=== PATIENT | male | born 1980 | race Caucasian/White ===

== ENCOUNTER → 2016-12-05 | Outpatient (CLI) | payer OTHER ==
[~2016-12-05] MED LIST: AMOXICILLIN500 MG PO; ANTIVERT/2525 MG PO; ATARAX,VISTARIL50 MG PO; ATARAX25 MG PO; ATIVAN1 MG PO; B-1100 MG PO; B121000 MCG/1 IM; BACTRIM DS 8001 TA1 PO; BENADRYL25 MG PO; BENTYL20 MG PO; CARBIDOPA PO; CARBIDOPA/LEVOD1 TA1 PO; CELEXA20 MG PO; CORDROL20 MG PO; CYMBALTA60 MG PO; DAYPRO600 M1 PO; DICYCLOMINE HCL20 MG PO; FLAGYL500 MG PO; HYDROXYZINE PAM50 MG PO; KEFLEX500 MG PO; KENALOG0.1% TP; LEXAPRO20 MG PO; LIDODERM 5% PATC1 EA T; LOMOTIL 0.025 M1 TA1 PO; LOPRESSOR25 MG PO; MEDROL DOSEPAK4 MG PO; MOTRIN800 MG PO; MULTIPLE VITAMI1 CAP PO; NICOTINE T21 MG/24 H T; NKHM; ONDANSETRON2 MG/ML IV; ONDANSETRON4 MG PO; PEN-VEE K500 MG PO; PEPTO BISMOL262 MG PO; PERCOCET 325 MG1 TA2 PO; PERCOCET 325 MG1 TA7 PO; PERCOCET 325 MG1 TAB PO; PHENERGAN25 M1 PO; PREDNICOT20 MG PO; PREDNISONE10 MG PO; PREDNISONE5 MG PO; PROTONIX40 MG PO; PROZAC40 M1 PO; REMERON30 MG PO; ROBAXIN750 MG PO; SEROQUEL100 MG PO; SEROQUEL200 MG PO; SEROQUEL300 MG PO; SEROQUEL50 MG PO; SINEMET 25-100M1 TAB PO; SOMA PO; SOMA350 MG PO; SUBOXONE 8 MG-21 TA2 SL; Septra Ds 800 M1 TAB PO; THERA1 TAB PO; TIZANIDINE HCL4 MG PO; TRAMADOL HCL50 MG PO; TRIMOX500 MG PO; TUMS 500500 MG PO; ULTRAM50 MG PO; VICODIN 5/500 505 MG PO; VICODIN 500 MG-1 TAB PO; VICODIN ES 7501 TAB PO; ZITHROMAX Z PA250 MG PO; ZOFRAN 4 MG ED2 TAB PO; ZOFRAN ODT4 MG PO; Zofran4 MG PO; [UNRECOGNIZED DRUG - OTHER] PO
--- NOTE | ~2016-12-05 | PR ---
[place], [place] PROGRESS NOTE NAME: MARIOLA DOTSON UNIT #: [id number] ROOM: DOCTOR: ESTHELA HERNANDEZ M.D. BIRTHDATE: [birth year] DOS: 12/05/2016 ADDENDUM PHYSICAL EXAMINATION: GENERAL: The patient is alert, oriented, and nonfocal, in no acute distress, nontoxic appearing. NECK: There is no JVD. LUNGS: Clear to auscultation. CARDIOVASCULAR: S1, S2, regular rate and rhythm. ABDOMEN: Soft and nontender. EXTREMITIES: There is no edema or calf tenderness. ESTHELA HERNANDEZ MD CM:PNTRANS [id number] ESTHELA HERNANDEZ M.D. 12/07/16 0659 interface
--- NOTE | ~2016-12-05 | WRIGHTHP ---
[place], [place] PATIENT HISTORY AND PHYSICAL EXAM [facility] DOTSON [id number] UNIT #: [id number] ROOM: DOCTOR: ESTHELA HERNANDEZ M.D. BIRTHDATE: [birth year] DOS: 12/05/2016 This is a new wound care evaluation. CHIEF COMPLAINT: Surgical wound of the right hand. HISTORY OF PRESENT ILLNESS: The patient is a 36-year-old male who had recent hand surgery. This was approximately 7 days ago. 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 The wound thus became infected, and he was seen at [place] for surgical removal of the foreign object. He still has sutures in place. Apparently while he was in there for several days, IV antibiotics and was told that he would need 6 weeks of IV antibiotics; however, the plan changed upon discharge, PICC line was removed, and he was discharged with oral amoxicillin and probenecid. The patient is concerned that there may be some ongoing problem with the wound. He still has pain off and on and also says that he is starting to feel like he is getting sick again, feels like he is getting fever. He has not had a documented fever at home that he is aware of, however. He does say that there is some drainage coming from one of the wounds. He had a fairly extensive surgery on the right hand and was told to just to keep the wound dry. In any case, the sutures are still in, and he apparently had an appointment with a surgeon next week. PAST MEDICAL HISTORY: Significant for history of neck injury and a shoulder injury, insomnia, depression. No diabetes that he is aware of. No history of MRSA or abscesses that he is aware of. History of hiatal hernia, history of difficulty clearing his ears, hypertension, insomnia as well. He denies any chest pain, shortness of breath, nausea, vomiting, abdominal pains, diarrhea or problems with the antibiotics at this time. He is quite anxious about his hand. He has numbness on the first digit pointer finger and once again feels like he is coming down with something. He says he feels the same way that he did when he first went to the hospital prior to the surgery. PAST SURGICAL HISTORY: He has had a hernia repair, tubes in his ears, back surgery, shoulder surgery and recent hand surgery. FAMILY HISTORY: His mother has a history of diabetes and hypertension. He has a son with diabetes. Grandpa had a history of skin cancer, grandmother with a history of breast cancer. He has a brother who had a history of bleeding on the brain. SOCIAL HISTORY: He smokes about a half pack a day. He currently is living at home with his girlfriend. He is not working. He has workmen's compensation. He denies drinking or drug abuse. ALLERGIES: NSAIDs, which cause vomiting. MEDICATIONS: He is on amoxicillin. I called [facility] to get the exact dose. He is on 500 mg tablets 2 tablets every 6 hours. A script was written for 14 days and then he has a script for probenecid 500 mg p.o. b.i.d., which he [place], [place] PATIENT HISTORY AND PHYSICAL EXAM NAME: MARIOLA DOTSON UNIT #: [id number] ROOM: DOCTOR: ESTHELA HERNANDEZ M.D. BIRTHDATE: [birth year] has not picked up yet, but that is going to be ready this afternoon. PHYSICAL EXAMINATION: VITAL SIGNS: His temperature is 99.4, his pulse is 102, respirations 18, blood pressure is 138/68. WOUND EXAM: The wound itself has several sutures present. There is one that is V-shaped on the palm that has some scabbing areas. There is no surrounding cellulitis. I do not appreciate any purulence at this time. It is not acutely red, and he has a well-healed and approximated what appears to be well-approximated sutures on the dorsal aspect of the pointer finger and several of the other sutures appear to be intact. There is some crusting noted where the V-shaped incision was made, but I did not appreciate any purulence or cellulitis on this area at this time. No debridement was done. ASSESSMENT AND PLAN: Recent hand trauma with subsequent infection and surgery. He still has sutures in. He is supposed to follow up with the surgeon next week. The wound appears stable just by looking at it; however, I am concerned about the temperature of 99.4. According to the patient and his mother, he was seen by Infectious Disease. His PICC line was discontinued, and he was put on oral antibiotics. I would like to get the records from [facility] to see exactly what the plan was. We will go ahead and get baseline blood work, a complete metabolic panel and ESR, CRP. Blood cultures have been ordered. Today, I will order them and also I will get an x-ray of the hand. I did explain that if he has any further changes in the wound or any increase in his temperature, he should go back to the Emergency Room. I would recommend going back to [facility], where the original surgery was. In the meantime, the wound appears clinically stable. We will go ahead and put Aquacel silver rope to any of the areas that may be draining, although at this time I do not appreciate any drainage, but the patient does report some drainage from one of the areas in the palmar aspect. I did explain to him to as far as the wound healing goes, we will know more about how the wound is healed once the sutures are removed. The patient is to follow up in one week. [place], [place] PATIENT HISTORY AND PHYSICAL EXAM NAME: [facility]OLA S [id number] UNIT #: [id number] ROOM: DOCTOR: ESTHELA HERNANDEZ M.D. BIRTHDATE: [birth year] ESTHELA HERNANDEZ MD CM:HISPHYS:PATIENT HISTORY AND PHYSICAL EXAMINATION [id number] ESTHELA HERNANDEZ M.D. 12/06/16 0910 interface
== END ==
LOC: WOUNDCARE 12:57
DX: T81.89XD Other complications of procedures, not elsewhere classified, subsequent encounter (principal); S61.401D Unspecified open wound of right hand, subsequent encounter; F32.9 Major depressive disorder, single episode, unspecified; I10 Essential (primary) hypertension; F17.210 Nicotine dependence, cigarettes, uncomplicated; X58.XXXD Exposure to other specified factors, subsequent encounter; Y83.8 Other surgical procedures as the cause of abnormal reaction of the patient, or of later complication, without mention of misadventure at the time of the procedure

== ENCOUNTER → 2017-04-03 | Outpatient (CLI) | payer OTHER | END | disposition home or self-care (01) | LOC: ORTHO 03:24 | DX: M25.512 Pain in left shoulder (principal); R20.0 Anesthesia of skin; V89.2XXD Person injured in unspecified motor-vehicle accident, traffic, subsequent encounter ==

== ENCOUNTER → 2017-04-15 | Outpatient (CLI) | payer OTHER | END | disposition home or self-care (01) | LOC: MRI 08:48 | DX: M75.52 Bursitis of left shoulder (principal); M75.102 Unspecified rotator cuff tear or rupture of left shoulder, not specified as traumatic ==

== ENCOUNTER 2017-09-10 07:50 | Emergency (ER) | payer SELFPAY ==
[~2017-09-10] VITALS: Ht 190.5 cm; Wt 95.3 kg
== END 2017-09-10 08:59 | disposition home or self-care (01) ==
LOC: ED 07:50
DX: B34.9 Viral infection, unspecified (principal); Z88.6 Allergy status to analgesic agent; Z79.899 Other long term (current) drug therapy

== ENCOUNTER 2019-05-01 10:42 | Emergency (ER) | payer OTHER ==
[~2019-05-01] VITALS: Ht 190.5 cm; Wt 99.8 kg
[2019-05-01 12:13] LABS: BASO # 0.1 10*3/uL (0.0-0.1); BASO % 1.4 % (0.0-1.0); EOS # 0.9 10*3/uL (0.0-0.4); EOS % 10.2 % (1.0-4.0); HEMATOCRIT 43.6 % (42.0-52.0); HEMOGLOBIN 14.3 g/dl (14.0-18.0); LYMPH # 1.2 10*3/uL (1.3-4.4); LYMPH % 13.9 % (27.0-41.0); MEAN CELL VOLUME 90.5 fl (80.0-94.0); MEAN CORPUSCULAR HGB 29.7 pg (27.0-31.0); MEAN CORPUSCULAR HGB CONC 32.8 g/dl (33.0-37.0); MEAN PLATELET VOLUME 9.3 fl (9.6-12.3); MONO # 0.5 10*3/uL (0.1-1.0); MONO % 5.7 % (3.0-9.0); NEUT # 5.8 10*3/uL (2.3-7.9); NEUT % 68.6 % (47.0-73.0); PLATELET COUNT AUTOMATED 302 10*3/uL (130-400); RED BLOOD COUNT 4.82 10*6/uL (4.50-5.90); RED CELL DISTRI WIDTH 13.4 % (0-14.5); WHITE BLOOD COUNT 8.5 10*3/uL (4.8-10.8)
[2019-05-01 12:27] LABS: ALKALINE PHOSPHATASE 106 U/L (45-117); BUN 9 mg/dl (7-24); CHLORIDE 103 mmol/L (98-107); CREATININE 1.06 mg/dL (0.70-1.30); POTASSIUM 4.1 mmol/L (3.5-5.1); SGOT/AST 118 IU/L (3-35); SGPT/ALT 162 U/L (12-78); SODIUM 138 mmol/L (136-145)
[2019-05-01] MEDS ORDERED: DELTASONE20 M1 PO (12:40)
== END 2019-05-01 12:53 | disposition home or self-care (01) ==
LOC: ED 10:42
PROVIDERS: Nurse Practitioner Family
DX: R21 Rash and other nonspecific skin eruption (principal); F17.200 Nicotine dependence, unspecified, uncomplicated; Z79.899 Other long term (current) drug therapy; Z88.6 Allergy status to analgesic agent

== ENCOUNTER 2019-05-04 13:53 | Emergency (ER) | payer OTHER ==
[~2019-05-04] VITALS: Ht 190.5 cm; Wt 99.8 kg
[~2019-05-04 13:53] MED LIST changes: +DELTASONE20 M1 PO
[2019-05-04 14:54] LABS: BASO # 0.1 10*3/uL (0.0-0.1); BASO % 1.3 % (0.0-1.0); EOS # 0.7 10*3/uL (0.0-0.4); EOS % 6.6 % (1.0-4.0); HEMATOCRIT 40.5 % (42.0-52.0); HEMOGLOBIN 13.6 g/dl (14.0-18.0); LYMPH # 2.4 10*3/uL (1.3-4.4); MEAN CELL VOLUME 88.2 fl (80.0-94.0); MEAN CORPUSCULAR HGB 29.6 pg (27.0-31.0); MEAN CORPUSCULAR HGB CONC 33.6 g/dl (33.0-37.0); MEAN PLATELET VOLUME 9.1 fl (9.6-12.3); MONO # 0.6 10*3/uL (0.1-1.0); MONO % 5.5 % (3.0-9.0); NEUT # 6.6 10*3/uL (2.3-7.9); NEUT % 63.2 % (47.0-73.0); PLATELET COUNT AUTOMATED 327 10*3/uL (130-400); RED BLOOD COUNT 4.59 10*6/uL (4.50-5.90); RED CELL DISTRI WIDTH 13.4 % (0-14.5); WHITE BLOOD COUNT 10.4 10*3/uL (4.8-10.8)
[2019-05-04 15:04] LABS: ACT PARTIAL THROMBO TIME 25.1 SECONDS (20.0-32.1); INTERNATIONAL NORM RATIO 0.9 (2.0-3.5)
[2019-05-04 15:14] LABS: ALBUMIN 3.6 gm/dl (3.1-4.5); ALKALINE PHOSPHATASE 91 U/L (45-117); BUN 12 mg/dl (7-24); CHLORIDE 103 mmol/L (98-107); CREATININE 1.03 mg/dL (0.70-1.30); POTASSIUM 3.4 mmol/L (3.5-5.1); SGOT/AST 47 IU/L (3-35); SGPT/ALT 113 U/L (12-78); SODIUM 134 mmol/L (136-145); TOTAL PROTEIN 7.4 gm/dL (6.4-8.2)
[2019-05-04] MEDS ORDERED: PREDNISONE10 MG PO (16:01)
== END 2019-05-04 16:09 | disposition home or self-care (01) ==
LOC: ED 13:53
PROVIDERS: Nurse Practitioner Family
DX: L25.9 Unspecified contact dermatitis, unspecified cause (principal); M79.89 Other specified soft tissue disorders; F14.10 Cocaine abuse, uncomplicated; F11.10 Opioid abuse, uncomplicated; F12.10 Cannabis abuse, uncomplicated; F17.200 Nicotine dependence, unspecified, uncomplicated; Z88.8 Allergy status to other drugs, medicaments and biological substances; Z79.899 Other long term (current) drug therapy

== ENCOUNTER 2019-05-12 14:06 | Emergency (ER) | payer OTHER ==
[~2019-05-12] VITALS: Ht 190.5 cm; Wt 97.5 kg
[2019-05-12 15:18] LABS: BILIRUBIN NEGATIVE (NEGATIVE); BLOOD NEGATIVE (NEGATIVE); CLARITY SL CLOUDY (CLEAR); COLOR YELLOW (YELLOW); GLUCOSE NEGATIVE (NEGATIVE); KETONE NEGATIVE (NEGATIVE); LEUKO ESTERASE NEGATIVE (NEGATIVE); NITRITE NEGATIVE (NEGATIVE); SPECIFIC GRAVITY 1.025 (1.005-1.030); UROBILINOGEN 0.2 E.U./dl (0.2-1.0)
[2019-05-12 16:00] LABS: BACTERIA TRACE; EPITHELIAL CELLS 0-2; WBC 0-2 wbc/hpf (0-5)
== END 2019-05-12 16:06 | disposition home or self-care (01) ==
LOC: ED 14:06
PROVIDERS: Emergency Medicine
DX: M13.0 Polyarthritis, unspecified (principal); F17.200 Nicotine dependence, unspecified, uncomplicated; Z88.8 Allergy status to other drugs, medicaments and biological substances; Z79.899 Other long term (current) drug therapy

== ENCOUNTER 2019-06-21 10:26 | Emergency (ER) | payer OTHER ==
[~2019-06-21] VITALS: Ht 190.5 cm; Wt 93.0 kg
[2019-06-21 11:20] LABS: BASO # 0.1 10*3/uL (0.0-0.1); BASO % 1.4 % (0.0-1.0); EOS # 0.5 10*3/uL (0.0-0.4); EOS % 6.7 % (1.0-4.0); HEMATOCRIT 44.9 % (42.0-52.0); HEMOGLOBIN 14.8 g/dl (14.0-18.0); LYMPH # 2.2 10*3/uL (1.3-4.4); LYMPH % 30.2 % (27.0-41.0); MEAN CELL VOLUME 88.6 fl (80.0-94.0); MEAN CORPUSCULAR HGB 29.2 pg (27.0-31.0); MEAN PLATELET VOLUME 9.4 fl (9.6-12.3); MONO # 0.6 10*3/uL (0.1-1.0); MONO % 7.7 % (3.0-9.0); NEUT # 3.9 10*3/uL (2.3-7.9); NEUT % 53.7 % (47.0-73.0); PLATELET COUNT AUTOMATED 436 10*3/uL (130-400); RED BLOOD COUNT 5.07 10*6/uL (4.50-5.90); RED CELL DISTRI WIDTH 13.4 % (0-14.5); WHITE BLOOD COUNT 7.3 10*3/uL (4.8-10.8)
[2019-06-21 11:36] LABS: ALBUMIN 3.9 gm/dl (3.1-4.5); ALKALINE PHOSPHATASE 232 U/L (45-117); BUN 10 mg/dl (7-24); CHLORIDE 107 mmol/L (98-107); CREATININE 1.01 mg/dL (0.70-1.30); POTASSIUM 4.2 mmol/L (3.5-5.1); SGOT/AST 69 IU/L (3-35); SGPT/ALT 219 U/L (12-78); SODIUM 139 mmol/L (136-145); TOTAL PROTEIN 8.5 gm/dL (6.4-8.2)
== END 2019-06-21 14:40 | disposition short-term general hospital (02) ==
LOC: ED 10:26
PROVIDERS: Nurse Practitioner Family
DX: G83.4 Cauda equina syndrome (principal); R30.0 Dysuria; R33.9 Retention of urine, unspecified; F17.200 Nicotine dependence, unspecified, uncomplicated; Z88.8 Allergy status to other drugs, medicaments and biological substances; Z79.899 Other long term (current) drug therapy

== ENCOUNTER 2019-08-27 19:37 | Emergency (ER) | payer OTHER ==
[~2019-08-27] VITALS: Ht 190.5 cm; Wt 97.5 kg
[2019-08-28] MEDS ORDERED: ROBAXIN-750750 MG PO (00:19)
[2019-08-28] MEDS ORDERED: PREDNISONE10 MG PO (00:19)
== END 2019-08-28 00:40 | disposition home or self-care (01) ==
LOC: ED 19:37
DX: M54.16 Radiculopathy, lumbar region (principal); F17.200 Nicotine dependence, unspecified, uncomplicated; Z88.8 Allergy status to other drugs, medicaments and biological substances; Z79.899 Other long term (current) drug therapy; Z98.890 Other specified postprocedural states

== ENCOUNTER 2019-09-12 14:42 | Emergency (ER) | payer OTHER ==
[~2019-09-12] VITALS: Ht 190.5 cm; Wt 95.3 kg
[~2019-09-12 14:42] MED LIST changes: +ROBAXIN-750750 MG PO
== END 2019-09-12 19:25 | disposition short-term general hospital (02) ==
LOC: ED 14:42
DX: G83.4 Cauda equina syndrome (principal); F17.200 Nicotine dependence, unspecified, uncomplicated; Z88.8 Allergy status to other drugs, medicaments and biological substances; Z79.899 Other long term (current) drug therapy; X50.1XXA Overexertion from prolonged static or awkward postures, initial encounter; Y93.89 Activity, other specified; Y92.89 Other specified places as the place of occurrence of the external cause; Y99.8 Other external cause status

== ENCOUNTER 2020-09-06 21:25 | Emergency (ER) | payer OTHER ==
[~2020-09-06] VITALS: Wt 90.7 kg
== END 2020-09-06 23:54 | disposition home or self-care (01) ==
LOC: ED 21:25
DX: T24.502A Corrosion of first degree of unspecified site of left lower limb, except ankle and foot, initial encounter (principal); T24.501A Corrosion of first degree of unspecified site of right lower limb, except ankle and foot, initial encounter; F32.9 Major depressive disorder, single episode, unspecified; F41.9 Anxiety disorder, unspecified; F17.200 Nicotine dependence, unspecified, uncomplicated; Z88.8 Allergy status to other drugs, medicaments and biological substances; Z79.899 Other long term (current) drug therapy; Z98.890 Other specified postprocedural states; Z96.22 Myringotomy tube(s) status; Z96.611 Presence of right artificial shoulder joint; Y93.89 Activity, other specified; Y92.89 Other specified places as the place of occurrence of the external cause; Y99.8 Other external cause status

== ENCOUNTER 2020-11-05 04:03 | Emergency (ER) | payer OTHER ==
[~2020-11-05] VITALS: Ht 190.5 cm; Wt 95.3 kg
== END 2020-11-05 06:02 | disposition home or self-care (01) ==
LOC: ED 04:03
DX: G89.18 Other acute postprocedural pain (principal); F41.9 Anxiety disorder, unspecified; F32.9 Major depressive disorder, single episode, unspecified; Z88.8 Allergy status to other drugs, medicaments and biological substances; Z79.899 Other long term (current) drug therapy; Z98.890 Other specified postprocedural states

== ENCOUNTER 2020-12-26 22:49 | Emergency (ER) | payer OTHER ==
[~2020-12-26] VITALS: Ht 177.8 cm; Wt 86.2 kg
[2020-12-27] MEDS ORDERED: MEDROL DOSEPAK4 MG PO (00:51)
[2020-12-27] MEDS ORDERED: CYCLOBENZAPRINE5 M3 PO (00:51)
== END 2020-12-27 00:59 | disposition home or self-care (01) ==
LOC: ED 22:49
DX: M54.5 Low back pain (principal); Z88.8 Allergy status to other drugs, medicaments and biological substances; Z79.899 Other long term (current) drug therapy; Z98.890 Other specified postprocedural states

== ENCOUNTER 2021-01-05 00:36 | Emergency (ER) | payer OTHER ==
[~2021-01-05] VITALS: Ht 187.9 cm; Wt 83.9 kg
[~2021-01-05 00:36] MED LIST changes: +CYCLOBENZAPRINE5 M3 PO
[2021-01-05 02:13] LABS: BASO # 0.1 10*3/uL (0.0-0.1); BASO % 0.8 % (0.0-1.0); EOS # 0.3 10*3/uL (0.0-0.4); EOS % 2.7 % (1.0-4.0); LYMPH # 2.4 10*3/uL (1.3-4.4); LYMPH % 25.1 % (27.0-41.0); MEAN CELL VOLUME 87.4 fl (80.0-94.0); MEAN CORPUSCULAR HGB 26.2 pg (27.0-31.0); MEAN PLATELET VOLUME 8.3 fl (9.6-12.3); MONO # 0.7 10*3/uL (0.1-1.0); MONO % 7.2 % (3.0-9.0); NEUT # 6.2 10*3/uL (2.3-7.9); NEUT % 63.7 % (47.0-73.0); PLATELET COUNT AUTOMATED 559 10*3/uL (130-400); RED BLOOD COUNT 3.89 10*6/uL (4.50-5.90); RED CELL DISTRI WIDTH 13.9 % (0-14.5); WHITE BLOOD COUNT 9.7 10*3/uL (4.8-10.8)
[2021-01-05 02:28] LABS: ALBUMIN 2.7 gm/dl (3.1-4.5); ALKALINE PHOSPHATASE 179 U/L (45-117); BUN 6 mg/dl (7-24); CHLORIDE 98 mmol/L (98-107); CREATININE 0.69 mg/dL (0.70-1.30); POTASSIUM 3.9 mmol/L (3.5-5.1); SGOT/AST 38 IU/L (3-35); SGPT/ALT 57 U/L (12-78); SODIUM 131 mmol/L (136-145)
== END 2021-01-05 20:55 | disposition short-term general hospital (02) ==
LOC: ED 00:36
PROVIDERS: Emergency Medicine
DX: L02.212 Cutaneous abscess of back [any part, except buttock and flank] (principal); M54.5 Low back pain; Z88.8 Allergy status to other drugs, medicaments and biological substances; Z79.899 Other long term (current) drug therapy; Z98.890 Other specified postprocedural states; Z96.611 Presence of right artificial shoulder joint

== ENCOUNTER 2021-05-14 00:33 | Emergency (ER) | payer OTHER ==
[~2021-05-14] VITALS: Ht 190.5 cm; Wt 86.2 kg
== END 2021-05-14 03:17 | disposition left against medical advice (07) ==
LOC: ED 00:33
DX: L02.01 Cutaneous abscess of face (principal)

== ENCOUNTER 2021-05-14 16:38 | Emergency (ER) | payer OTHER ==
[~2021-05-14] VITALS: Ht 190.5 cm; Wt 83.9 kg
[2021-05-14 19:54] LABS: BASO # 0.1 10*3/uL (0.0-0.1); BASO % 0.7 % (0.0-1.0); EOS # 0.1 10*3/uL (0.0-0.4); EOS % 1.4 % (1.0-4.0); LYMPH # 1.6 10*3/uL (1.3-4.4); LYMPH % 15.6 % (27.0-41.0); MEAN CELL VOLUME 80.2 fl (80.0-94.0); MEAN CORPUSCULAR HGB 24.3 pg (27.0-31.0); MEAN CORPUSCULAR HGB CONC 30.3 g/dl (33.0-37.0); MEAN PLATELET VOLUME 8.5 fl (9.6-12.3); MONO # 0.5 10*3/uL (0.1-1.0); MONO % 4.8 % (3.0-9.0); NEUT % 77.2 % (47.0-73.0); PLATELET COUNT AUTOMATED 490 10*3/uL (130-400); RED BLOOD COUNT 4.24 10*6/uL (4.50-5.90); RED CELL DISTRI WIDTH 15.2 % (0-14.5); WHITE BLOOD COUNT 10.3 10*3/uL (4.8-10.8)
[2021-05-14 20:11] LABS: ALBUMIN 3.2 gm/dl (3.1-4.5); ALKALINE PHOSPHATASE 100 U/L (45-117); BUN 11 mg/dl (7-24); CHLORIDE 104 mmol/L (98-107); CREATININE 0.76 mg/dL (0.70-1.30); SGOT/AST 13 IU/L (3-35); SGPT/ALT 14 U/L (12-78); SODIUM 136 mmol/L (136-145); TOTAL PROTEIN 8.4 gm/dL (6.4-8.2)
[2021-05-14 20:12] LABS: TROPONIN I < 0.015 ng/ml (<0.045)
== END 2021-05-14 22:00 | disposition left against medical advice (07) ==
LOC: ED 16:38
PROVIDERS: Physician Assistant
DX: L02.01 Cutaneous abscess of face (principal)

== ENCOUNTER 2021-05-14 22:33 | Emergency (ER) | payer OTHER ==
[~2021-05-14] VITALS: Ht 190.5 cm; Wt 83.9 kg
== END 2021-05-15 03:00 | disposition left against medical advice (07) ==
LOC: ED 22:33
DX: B99.9 Unspecified infectious disease (principal); Z53.21 Procedure and treatment not carried out due to patient leaving prior to being seen by health care provider

== ENCOUNTER 2022-02-01 17:09 | Inpatient (IN) | payer OTHER ==
[~2022-02-01] VITALS: Ht 190.5 cm; Wt 86.4 kg
[2022-02-01 17:22] VITALS: BP 136/76
[2022-02-01 18:29] LABS: BASO # 0.1 10*3/uL (0.0-0.1); BASO % 1.3 % (0.0-1.0); EOS # 0.2 10*3/uL (0.0-0.4); HEMATOCRIT 32.1 % (42.0-52.0); LYMPH # 2.3 10*3/uL (1.3-4.4); MEAN CELL VOLUME 89.4 fl (80.0-94.0); MEAN CORPUSCULAR HGB CONC 30.2 g/dl (33.0-37.0); MEAN PLATELET VOLUME 8.4 fl (9.6-12.3); MONO # 0.6 10*3/uL (0.1-1.0); MONO % 6.3 % (3.0-9.0); NEUT # 6.3 10*3/uL (2.3-7.9); PLATELET COUNT AUTOMATED 743 10*3/uL (130-400); RED BLOOD COUNT 3.59 10*6/uL (4.50-5.90); RED CELL DISTRI WIDTH 14.4 % (0-14.5); WHITE BLOOD COUNT 9.5 10*3/uL (4.8-10.8)
[2022-02-01 18:48] LABS: ALKALINE PHOSPHATASE 93 U/L (45-117); BUN 11 mg/dl (7-24); CHLORIDE 106 mmol/L (98-107); CREATININE 0.97 mg/dL (0.70-1.30); SGOT/AST 10 IU/L (3-35); SGPT/ALT 12 U/L (12-78); SODIUM 138 mmol/L (136-145); TOTAL PROTEIN 7.8 gm/dL (6.4-8.2)
[2022-02-01 21:04] VITALS: BP 134/69
[2022-02-01 22:36] VITALS: BP 125/102
[2022-02-02] VITALS (9 sets, daily range): BP systolic 121–151; BP diastolic 44–85
[2022-02-03] VITALS: BP 156/82
[2022-02-03 06:26] LABS: BASO # 0.1 10*3/uL (0.0-0.1); BASO % 1.4 % (0.0-1.0); EOS # 0.2 10*3/uL (0.0-0.4); EOS % 2.4 % (1.0-4.0); HEMATOCRIT 33.7 % (42.0-52.0); LYMPH # 1.5 10*3/uL (1.3-4.4); LYMPH % 20.9 % (27.0-41.0); MEAN CELL VOLUME 87.1 fl (80.0-94.0); MEAN CORPUSCULAR HGB 26.9 pg (27.0-31.0); MEAN CORPUSCULAR HGB CONC 30.9 g/dl (33.0-37.0); MEAN PLATELET VOLUME 8.4 fl (9.6-12.3); MONO # 0.4 10*3/uL (0.1-1.0); MONO % 5.7 % (3.0-9.0); NEUT # 4.9 10*3/uL (2.3-7.9); NEUT % 69.2 % (47.0-73.0); PLATELET COUNT AUTOMATED 720 10*3/uL (130-400); RED BLOOD COUNT 3.87 10*6/uL (4.50-5.90)
[2022-02-03 06:38] LABS: BUN 8 mg/dl (7-24); CHLORIDE 108 mmol/L (98-107); CREATININE 0.71 mg/dL (0.70-1.30); SODIUM 143 mmol/L (136-145)
[2022-02-03 08:00] VITALS: BP 148/79
[2022-02-03 12:00] VITALS: BP 139/78
[2022-02-03 16:00] VITALS: BP 140/74
[2022-02-03 20:00] VITALS: BP 139/74
[2022-02-04] VITALS: BP 129/70
[2022-02-04 08:00] VITALS: BP 134/67
[2022-02-04 12:00] VITALS: BP 133/71
[2022-02-04 16:00] VITALS: BP 154/81
[2022-02-04] MEDS ORDERED: AUGMENTIN 875-875 MG PO (18:58)
[2022-02-04] MEDS ORDERED: SEPTDS PO (18:58)
== END 2022-02-04 21:48 | disposition home or self-care (01) | DRG 773 ==
LOC: ED 17:09 → 4E 21:17 → EDHOLD 21:17 → 4E 21:56 → 5E 02-03 14:38
PROVIDERS: Internal Medicine; Nurse Practitioner Family; ADMIT Family Medicine; ATTEND Family Medicine
PROC: 0X9D0ZZ Drainage of Right Lower Arm, Open Approach (ICD-10-PCS; principal; 2022-02-02)
DX: F14.10 Cocaine abuse, uncomplicated (principal); L02.413 Cutaneous abscess of right upper limb; F11.10 Opioid abuse, uncomplicated; E43 Unspecified severe protein-calorie malnutrition; Z96.611 Presence of right artificial shoulder joint; G25.81 Restless legs syndrome; G89.4 Chronic pain syndrome; D64.9 Anemia, unspecified; D75.839 Thrombocytosis, unspecified; R73.9 Hyperglycemia, unspecified; F32.A Depression, unspecified; S41.101A Unspecified open wound of right upper arm, initial encounter; F41.9 Anxiety disorder, unspecified; E83.51 Hypocalcemia; B95.62 Methicillin resistant Staphylococcus aureus infection as the cause of diseases classified elsewhere; Z83.3 Family history of diabetes mellitus; Z88.8 Allergy status to other drugs, medicaments and biological substances; Z82.49 Family history of ischemic heart disease and other diseases of the circulatory system; X58.XXXA Exposure to other specified factors, initial encounter; Y93.89 Activity, other specified; Y92.89 Other specified places as the place of occurrence of the external cause; Y99.8 Other external cause status; Z68.23 Body mass index [BMI] 23.0-23.9, adult

== ENCOUNTER 2022-04-22 15:05 | Emergency (ER) | payer OTHER ==
[~2022-04-22] VITALS: Ht 190.5 cm; Wt 93.0 kg
[~2022-04-22 15:05] MED LIST changes: +AUGMENTIN 875-875 MG PO; +SEPTDS PO
[2022-04-22] MEDS ORDERED: PREDNISONE10 MG PO (15:38)
== END 2022-04-22 15:45 | disposition home or self-care (01) ==
LOC: ED 15:05
DX: L23.7 Allergic contact dermatitis due to plants, except food (principal); Z88.6 Allergy status to analgesic agent; Z98.890 Other specified postprocedural states

== ENCOUNTER 2023-04-19 17:53 | Emergency (ER) | payer OTHER ==
[~2023-04-19] VITALS: Ht 190.5 cm; Wt 90.7 kg
== END 2023-04-19 19:32 | disposition left against medical advice (07) ==
LOC: ED 17:53
DX: L02.414 Cutaneous abscess of left upper limb (principal); L02.413 Cutaneous abscess of right upper limb; F32.A Depression, unspecified; F41.9 Anxiety disorder, unspecified; Z88.8 Allergy status to other drugs, medicaments and biological substances; Z98.890 Other specified postprocedural states; F14.10 Cocaine abuse, uncomplicated; F11.10 Opioid abuse, uncomplicated; F12.10 Cannabis abuse, uncomplicated; F17.200 Nicotine dependence, unspecified, uncomplicated

== ENCOUNTER 2023-06-19 11:26 | Emergency (ER) | payer OTHER ==
[~2023-06-19] VITALS: Wt 83.9 kg
[2023-06-19 12:06] LABS: BASO # 0.1 10*3/uL (0.0-0.1); BASO % 1.2 % (0.0-1.0); EOS # 0.2 10*3/uL (0.0-0.4); EOS % 2.5 % (1.0-4.0); HEMATOCRIT 33.3 % (42.0-52.0); LYMPH # 1.3 10*3/uL (1.3-4.4); LYMPH % 18.9 % (27.0-41.0); MEAN CELL VOLUME 81.4 fl (80.0-94.0); MEAN CORPUSCULAR HGB 24.4 pg (27.0-31.0); MEAN PLATELET VOLUME 8.8 fl (9.6-12.3); MONO # 0.6 10*3/uL (0.1-1.0); MONO % 9.3 % (3.0-9.0); NEUT # 4.5 10*3/uL (2.3-7.9); NEUT % 67.8 % (47.0-73.0); PLATELET COUNT AUTOMATED 386 10*3/uL (130-400); RED BLOOD COUNT 4.09 10*6/uL (4.50-5.90); RED CELL DISTRI WIDTH 14.8 % (0-14.5); WHITE BLOOD COUNT 6.7 10*3/uL (4.8-10.8)
[2023-06-19 12:26] LABS: ALKALINE PHOSPHATASE 98 U/L (46-116); BUN 11 mg/dl (9-23); CHLORIDE 106 mmol/L (98-107); POTASSIUM 4.3 mmol/L (3.4-5.1); SGPT/ALT 9 U/L (5-49); TOTAL PROTEIN 7.7 gm/dL (6.0-8.0)
[2023-06-19] MEDS ORDERED: CEPHALEXIN500 M1 PO ×2 (14:33→15:27)
== END 2023-06-19 15:27 | disposition home or self-care (01) ==
LOC: ED 11:26
PROVIDERS: Nurse Practitioner Family
DX: S50.912A Unspecified superficial injury of left forearm, initial encounter (principal); S50.911A Unspecified superficial injury of right forearm, initial encounter; M79.602 Pain in left arm; M25.551 Pain in right hip; M25.511 Pain in right shoulder; F32.A Depression, unspecified; F41.9 Anxiety disorder, unspecified; Z88.8 Allergy status to other drugs, medicaments and biological substances; Z98.890 Other specified postprocedural states; F14.10 Cocaine abuse, uncomplicated; F12.10 Cannabis abuse, uncomplicated; F17.290 Nicotine dependence, other tobacco product, uncomplicated; F11.20 Opioid dependence, uncomplicated; W19.XXXA Unspecified fall, initial encounter; Y93.89 Activity, other specified; Y92.89 Other specified places as the place of occurrence of the external cause; Y99.8 Other external cause status

== ENCOUNTER 2024-09-03 20:00 | Emergency (ER) | payer OTHER ==
[~2024-09-03 20:00] MED LIST changes: +CEPHALEXIN500 M1 PO
== END 2024-09-03 22:31 | disposition home or self-care (01) ==
LOC: ED 20:00
DX: F11.90 Opioid use, unspecified, uncomplicated (principal); F32.A Depression, unspecified; F41.9 Anxiety disorder, unspecified; F14.10 Cocaine abuse, uncomplicated; F12.10 Cannabis abuse, uncomplicated; F17.200 Nicotine dependence, unspecified, uncomplicated; F19.10 Other psychoactive substance abuse, uncomplicated; Z88.8 Allergy status to other drugs, medicaments and biological substances; Z98.890 Other specified postprocedural states